=== PATIENT | female | born 1960 | race Two or more races ===

== ENCOUNTER 2018-08-29 11:11 | Outpatient (CLI) | payer OTHER ==
[~2018-08-29 11:11] MED LIST: ANTIVERT25 M1 PO; ATENOLOL25 MG PO; ATIVAN0.5 MG; ATIVAN1 M1 PO; CARAFATE SU1 G/10 ML PO; COLACE100 MG PO; FIORICET-COD 31 EACH PO; LAMICTAL200 MG PO; LAMICTAL5 MG; METOCLOPRAMIDE H5 MG PO; NABUMETONE500 MG PO; PEPCID40 MG PO; PERCOCET 5/3251 TAB PO; TIAZAC180 MG
== END 2018-08-29 11:33 | disposition home or self-care (01) ==
LOC: LAB 11:11
DX: D72.818 Other decreased white blood cell count (principal); I10 Essential (primary) hypertension; D50.8 Other iron deficiency anemias; D51.8 Other vitamin B12 deficiency anemias; D51.1 Vitamin B12 deficiency anemia due to selective vitamin B12 malabsorption with proteinuria; B20 Human immunodeficiency virus [HIV] disease; E03.8 Other specified hypothyroidism; E06.3 Autoimmune thyroiditis; Z11.4 Encounter for screening for human immunodeficiency virus [HIV]; F33.8 Other recurrent depressive disorders

== ENCOUNTER 2018-09-03 10:52 | Outpatient (CLI) | payer OTHER | END 2018-09-03 10:57 | disposition home or self-care (01) | LOC: SONOGRAMA 10:52 | DX: D72.818 Other decreased white blood cell count (principal); F33.9 Major depressive disorder, recurrent, unspecified; I10 Essential (primary) hypertension; E03.8 Other specified hypothyroidism ==

== ENCOUNTER 2018-11-13 08:49 | Outpatient (CLI) | payer OTHER | END 2018-11-13 15:00 | disposition home or self-care (01) | LOC: LAB 08:49 | DX: D70.2 Other drug-induced agranulocytosis (principal); D51.8 Other vitamin B12 deficiency anemias; F33.8 Other recurrent depressive disorders; I10 Essential (primary) hypertension; R97.0 Elevated carcinoembryonic antigen [CEA] ==

== ENCOUNTER 2019-01-01 13:03 | Outpatient (CLI) | payer OTHER | END 2019-01-01 13:11 | disposition home or self-care (01) | LOC: LAB 13:03 | DX: D51.8 Other vitamin B12 deficiency anemias (principal); D70.2 Other drug-induced agranulocytosis; F33.9 Major depressive disorder, recurrent, unspecified; I10 Essential (primary) hypertension ==

== ENCOUNTER 2019-04-01 09:36 | Outpatient (CLI) | payer OTHER | END 2019-04-01 09:43 | disposition home or self-care (01) | LOC: LAB 09:36 | DX: D50.8 Other iron deficiency anemias (principal); I10 Essential (primary) hypertension; D72.818 Other decreased white blood cell count; D51.3 Other dietary vitamin B12 deficiency anemia; F33.9 Major depressive disorder, recurrent, unspecified; D51.8 Other vitamin B12 deficiency anemias ==

== ENCOUNTER → 2019-09-03 | Outpatient (CLI) | payer OTHER | END | disposition home or self-care (01) | LOC: LAB 09:47 | DX: D50.8 Other iron deficiency anemias (principal); I10 Essential (primary) hypertension; D70.2 Other drug-induced agranulocytosis; D51.3 Other dietary vitamin B12 deficiency anemia; F33.8 Other recurrent depressive disorders; D51.8 Other vitamin B12 deficiency anemias; E03.8 Other specified hypothyroidism; R97.0 Elevated carcinoembryonic antigen [CEA]; D72.818 Other decreased white blood cell count ==

== ENCOUNTER 2019-10-28 09:06 | Outpatient (CLI) | payer OTHER | END 2019-10-28 09:15 | disposition home or self-care (01) | LOC: LAB 09:06 | DX: D50.8 Other iron deficiency anemias (principal); I10 Essential (primary) hypertension; D70.2 Other drug-induced agranulocytosis; D51.3 Other dietary vitamin B12 deficiency anemia; F33.8 Other recurrent depressive disorders ==

== ENCOUNTER 2020-05-08 09:18 | Outpatient (CLI) | payer OTHER | END 2020-05-08 09:27 | disposition home or self-care (01) | LOC: LAB 09:18 | PROVIDERS: ATTEND Internal Medicine Hematology & Oncology | DX: D50.8 Other iron deficiency anemias (principal); I10 Essential (primary) hypertension; D70.2 Other drug-induced agranulocytosis; D51.3 Other dietary vitamin B12 deficiency anemia; F33.8 Other recurrent depressive disorders ==

== ENCOUNTER → 2020-12-17 07:48 | Outpatient (CLI) | payer OTHER | END | disposition home or self-care (01) | LOC: LAB 07:48 | PROVIDERS: ATTEND Internal Medicine Hematology & Oncology | DX: D50.8 Other iron deficiency anemias (principal); I10 Essential (primary) hypertension; E55.9 Vitamin D deficiency, unspecified; F33.9 Major depressive disorder, recurrent, unspecified; D72.818 Other decreased white blood cell count ==

== ENCOUNTER → 2021-06-04 09:44 | Outpatient (CLI) | payer OTHER | END | disposition home or self-care (01) | LOC: LAB 09:44 | PROVIDERS: ATTEND Internal Medicine Hematology & Oncology | DX: D50.8 Other iron deficiency anemias (principal); R79.89 Other specified abnormal findings of blood chemistry; I10 Essential (primary) hypertension; R74.02 Elevation of levels of lactic acid dehydrogenase [LDH]; K76.89 Other specified diseases of liver; E55.9 Vitamin D deficiency, unspecified; C56.9 Malignant neoplasm of unspecified ovary; R97.8 Other abnormal tumor markers; R97.1 Elevated cancer antigen 125 [CA 125]; R97.0 Elevated carcinoembryonic antigen [CEA]; D70.2 Other drug-induced agranulocytosis; D51.3 Other dietary vitamin B12 deficiency anemia; F33.8 Other recurrent depressive disorders ==

== ENCOUNTER 2021-12-22 10:09 | Outpatient (CLI) | payer OTHER | END 2021-12-22 10:10 | disposition home or self-care (01) | LOC: LAB 10:09 | PROVIDERS: ATTEND Internal Medicine Hematology & Oncology | DX: D50.8 Other iron deficiency anemias (principal); R79.9 Abnormal finding of blood chemistry, unspecified; I10 Essential (primary) hypertension; R74.02 Elevation of levels of lactic acid dehydrogenase [LDH]; K76.89 Other specified diseases of liver; D51.8 Other vitamin B12 deficiency anemias; E55.9 Vitamin D deficiency, unspecified; E03.8 Other specified hypothyroidism; R97.0 Elevated carcinoembryonic antigen [CEA]; R97.8 Other abnormal tumor markers; D72.818 Other decreased white blood cell count; D70.2 Other drug-induced agranulocytosis; D51.3 Other dietary vitamin B12 deficiency anemia; F33.9 Major depressive disorder, recurrent, unspecified ==

== ENCOUNTER 2022-01-10 09:44 | Outpatient (CLI) | payer OTHER | END 2022-01-10 09:51 | disposition home or self-care (01) | LOC: LAB 09:44 | PROVIDERS: ATTEND Internal Medicine Hematology & Oncology | DX: I11.9 Hypertensive heart disease without heart failure (principal); E78.1 Pure hyperglyceridemia; E11.9 Type 2 diabetes mellitus without complications; E03.9 Hypothyroidism, unspecified ==

== ENCOUNTER 2022-12-20 08:18 | Outpatient (CLI) | payer OTHER | END 2022-12-20 08:35 | disposition home or self-care (01) | LOC: LAB 08:18 | PROVIDERS: ATTEND Internal Medicine Hematology & Oncology | DX: D50.8 Other iron deficiency anemias (principal); R79.9 Abnormal finding of blood chemistry, unspecified; I10 Essential (primary) hypertension; R74.02 Elevation of levels of lactic acid dehydrogenase [LDH]; K76.89 Other specified diseases of liver; E55.9 Vitamin D deficiency, unspecified; E03.8 Other specified hypothyroidism; C50.919 Malignant neoplasm of unspecified site of unspecified female breast; R97.8 Other abnormal tumor markers; C25.9 Malignant neoplasm of pancreas, unspecified; C56.9 Malignant neoplasm of unspecified ovary; R97.1 Elevated cancer antigen 125 [CA 125]; D72.818 Other decreased white blood cell count; D70.2 Other drug-induced agranulocytosis; D51.3 Other dietary vitamin B12 deficiency anemia; F33.9 Major depressive disorder, recurrent, unspecified ==

== ENCOUNTER 2023-11-02 10:13 | Outpatient (CLI) | payer OTHER ==
[2023-11-02 11:26] LABS: HEMATOCRIT 39.9 % (36.0-45.00); HEMOGLOBIN 13.6 g/dL (12.0-15.00); MEAN CELL VOLUME 87.1 fL (80.00-100.00); MEAN CORPUSCULAR HEMOGLOBIN 29.7 pg (27.00-32.0); MEAN CORPUSCULAR HGB CONC 34.2 g/dl (32.0-36.0); PLATELET COUNT 245 K/uL (150-450); RED BLOOD COUNT 4.59 M/uL (4.00-6.00); RED CELL DISTRIBUTION WIDTH 14.5 % (11.5-14.5)
[2023-11-02 12:06] LABS: ALBUMIN 3.8 gm/dL (3.4-5.0); BILIRUBIN TOTAL 0.48 mg/dL (0.3-1.2); CALCIUM 9.6 mg/dL (8.5-10.1); CREATININE SERUM 0.58 mg/dL (0.55-1.02); GFR 104.33; GLOBULINA 3.6 G/DL (2.4-3.5); TOTAL PROTEIN 7.4 gm/dL (6.4-8.2)
[2023-11-02 12:33] LABS: FOLIC ACID 16.18 ng/ml (4.78-20); VITAMIN D3 25 HYDROXY 61.35 ng/ml (30-120)
[2023-11-02 15:45] LABS: % SATURACION 26.3 % (15-50); FERRITIN 18.2 NG/ML (8-252); TSH 1.98 uIU/mL (0.358-3.74)
[2023-11-03 11:08] LABS: CA 15-3 12.1 U/mL (0.0-25.0)
[2023-11-03 16:42] LABS: MANUAL PLATELET COUNT 496
[2023-11-03 16:46] LABS: PLATELET ESTIMATE INCREASED (NORMAL)
== END 2023-11-02 10:14 | disposition home or self-care (01) ==
LOC: LAB 10:13
PROVIDERS: ATTEND Internal Medicine Hematology & Oncology
DX: D72.818 Other decreased white blood cell count (principal); D70.2 Other drug-induced agranulocytosis; D51.3 Other dietary vitamin B12 deficiency anemia; F33.9 Major depressive disorder, recurrent, unspecified; I10 Essential (primary) hypertension; R97.8 Other abnormal tumor markers; R97.1 Elevated cancer antigen 125 [CA 125]; C56.9 Malignant neoplasm of unspecified ovary; C50.919 Malignant neoplasm of unspecified site of unspecified female breast; C25.9 Malignant neoplasm of pancreas, unspecified; E03.8 Other specified hypothyroidism; E55.9 Vitamin D deficiency, unspecified; D50.8 Other iron deficiency anemias; K76.89 Other specified diseases of liver

== ENCOUNTER 2024-06-14 09:31 | Outpatient (CLI) | payer OTHER ==
[2024-06-14 10:13] LABS: HEMATOCRIT 43.3 % (36.0-45.00); HEMOGLOBIN 15.2 g/dL (12.0-15.00); MEAN CELL VOLUME 88.8 fL (80.00-100.00); MEAN CORPUSCULAR HEMOGLOBIN 31.1 pg (27.00-32.0); PLATELET COUNT 253 K/uL (150-450); RED BLOOD COUNT 4.88 M/uL (4.00-6.00); RED CELL DISTRIBUTION WIDTH 14.1 % (11.5-14.5)
[2024-06-14 10:28] LABS: URINE APPEARANCE Clear; URINE BILIRRUBIN Negative (NEGATIVE); URINE BLOOD Negative; URINE COLOR Yellow; URINE GLUCOSE Negative (NEGATIVE); URINE KETONE Negative (NEGATIVE); URINE LEUKOCYTE Negative; URINE NITRATE Negative; URINE PROTEIN Negative (NEGATIVE); URINE UROBILINOGEN 0.2 E.U./dl
[2024-06-14 10:30] LABS: INR 1.02; PARTIAL THROMBOPLASTIN TIME 29.4 SECONDS (22.0-34.0); PROTHROMBIN TIME 11.1 SECONDS (9.0-11.5)
[2024-06-14 10:32] LABS: URINE RBC 13.2 uL (0.0-20.8)
[2024-06-14 10:35] LABS: URINE BACTERIA 2.5 uL (0.0-1933); URINE EPITHELIAL CELLS 1.2 uL (0.0-38.8); URINE WBC 1.5 uL (0.0-23.2)
[2024-06-14 11:30] LABS: BILIRUBIN TOTAL 0.52 mg/dL (0.3-1.2); CALCIUM 9.9 mg/dL (8.5-10.1); CREATININE SERUM 0.65 mg/dL (0.55-1.02); GFR 91.19; GLOBULINA 3.8 G/DL (2.4-3.5); POTASSIUM 4.38 mEq/L (3.5-5.1); TOTAL PROTEIN 7.8 gm/dL (6.4-8.2)
== END 2024-06-14 09:32 | disposition home or self-care (01) ==
LOC: LAB 09:31
PROVIDERS: ATTEND Obstetrics & Gynecology Gynecology
DX: D64.9 Anemia, unspecified (principal); N39.0 Urinary tract infection, site not specified; I10 Essential (primary) hypertension

== ENCOUNTER 2024-07-01 09:20 | Day surgery (SDC) | payer OTHER ==
[2024-06-27 12:37] VITALS: BP 143/82
[~2024-07-01] VITALS: Ht 162.6 cm; Wt 83.5 kg
[~2024-07-01 09:20] MED LIST changes: +TRANXENE
[2024-07-01] MEDS ORDERED: POVIDONE-IODINE 118 ML BOTT TOP ONE (18:30)
[2024-07-01] MEDS ORDERED: IBU600 MG PO (18:50)
[2024-07-01] MEDS ORDERED: MORPHINE SULFATE 4 MG/ML VIAL IV ONE (19:10)
== END 2024-07-01 20:15 | disposition home or self-care (01) ==
LOC: CIR.AMB 09:20
PROVIDERS: ATTEND Obstetrics & Gynecology Gynecology
DX: N85.00 Endometrial hyperplasia, unspecified (principal); Z91.018 Allergy to other foods